=== PATIENT | female | born 1960 | race Caucasian/White ===

== ENCOUNTER 2017-09-24 12:59 | Emergency (ER) | payer OTHER ==
[~2017-09-24] VITALS: Ht 177.8 cm; Wt 136.1 kg
[2017-09-24] MEDS ORDERED: CLEOCIN HCL300 MG PO (13:24)
[2017-09-24] MEDS ORDERED: RAMIPRIL10 MG PO (13:25)
[2017-09-24] MEDS ORDERED: SSD25 GM (13:25)
[2017-09-24] MEDS ORDERED: FENTANYL1 EAC1 TD (13:26)
[2017-09-24] MEDS ORDERED: VENTOLIN HFA18 GM INH (13:26)
[2017-09-24] MEDS ORDERED: MOBIC7.5 MG PO (13:27)
[2017-09-24] MEDS ORDERED: DULOXETINE HCL30 MG PO (13:27)
[2017-09-24] MEDS ORDERED: PREDNISONE5 MG PO (13:27)
[2017-09-24] MEDS ORDERED: OMEPRAZOLE20 MG PO (13:27)
[2017-09-24] MEDS ORDERED: ATENOLOL25 MG PO (13:27)
[2017-09-24] MEDS ORDERED: ZONISAMIDE100 MG PO (13:28)
[2017-09-24] MEDS ORDERED: HUMULIN R500 UNIT/1 SUB-Q (13:28)
[2017-09-24] MEDS ORDERED: BENZONATATE100 MG PO (13:29)
[2017-09-24] MEDS ORDERED: ALBUTEROL2.5 MG/3 M INH (13:29)
[2017-09-24] MEDS ORDERED: AUGMENTIN 875-1 EACH PO (13:43)
[2017-09-24] MEDS ORDERED: NORCO 10-325 T1 EACH PO (13:43)
== END 2017-09-24 14:15 | disposition home or self-care (01) ==
LOC: ED 12:59
DX: L02.612 Cutaneous abscess of left foot (principal); I10 Essential (primary) hypertension; E03.9 Hypothyroidism, unspecified; E11.40 Type 2 diabetes mellitus with diabetic neuropathy, unspecified; Z90.710 Acquired absence of both cervix and uterus; Z88.2 Allergy status to sulfonamides; Z90.89 Acquired absence of other organs; Z88.8 Allergy status to other drugs, medicaments and biological substances; Z79.4 Long term (current) use of insulin; Z79.899 Other long term (current) drug therapy
CPT/HCPCS: 96374; 99283; J0696